=== PATIENT | female | born 1950 | race Two or more races ===

== ENCOUNTER 2018-11-14 08:09 | Outpatient (CLI) | payer OTHER | END 2018-11-14 08:24 | disposition home or self-care (01) | LOC: NUCLEAR 08:09 | DX: R07.89 Other chest pain (principal); R94.31 Abnormal electrocardiogram [ECG] [EKG] | CPT/HCPCS: 78452; 93017; A9500 ==

== ENCOUNTER 2024-07-06 14:37 | Outpatient (CLI) | payer OTHER | END 2024-07-06 14:45 | disposition home or self-care (01) | LOC: SONOGRAMA 14:37 | PROVIDERS: ATTEND Pathology Anatomic Pathology & Clinical Pathology | DX: D34 Benign neoplasm of thyroid gland (principal); E04.2 Nontoxic multinodular goiter ==